=== PATIENT | male | born 1990 | race Caucasian/White ===

== ENCOUNTER 2017-05-20 09:15 | Emergency (ER) | payer MEDICAID, SELFPAY ==
[2017-05-20 09:16] VITALS: BP 145/87; PULSE 95; RESP 24; TEMP 36.7; O2SAT 98; BMI 35.2
--- NOTE | 2017-05-20 09:37 | US_ITS ---
STUDY: ABDOMINAL ULTRASOUND - RIGHT UPPER QUADRANT REASON FOR VISIT: Male, 26 years old. Several month history of right upper quadrant pain. TECHNIQUE: Ultrasound evaluation of the right upper quadrant was performed with real-time and static lew-scale imaging. TECHNICAL QUALITY: Adequate. COMPARISON: None. FINDINGS: Liver: The liver the liver is slightly enlarged and measures 18.4 cm. There is increased echogenicity consistent with fatty infiltration. The bile ducts are within normal limits. There is hepatic color flow. The direction of portal flow is hepatopetal. There is no demonstrated mass lesion. Gallbladder: Normal distended gallbladder. The gallbladder wall measures 2.8 mm. There is a positive sonographic Guallpa's sign. There is no pericholecystic fluid. There are no gallstones. A small amount of sludge is seen within the gallbladder lumen. Common Bile Duct (C.B.D.): The common bile duct measures 4.5 mm. Pancreas: Normal size of the head, body and tail of the pancreas. There is increased echogenicity of the pancreas. There is no demonstrated pancreatic mass or cyst. Right Kidney: Normal size of the right kidney. The right kidney measures 11.5 cm x 5.3 cm x 6.1 cm. Normal renal cortex. The right cortex measures 2.2 cm. There is no demonstrated renal mass or cyst. There is no right hydronephrosis. US/Gallbladder IMPRESSION: Mild hepatomegaly. Fatty infiltration of the liver. Sludge is seen within the gallbladder lumen. Electronically Signed: Krzysztof Santana MD at 10:57 EST Tel [phone], Service support ,
--- NOTE | 2017-05-20 09:39 | ED.DCSUM_ITS ---
- ER Visit Summary Date of Service: 05/20/17 Chief Complaint: Abdominal pain History of Present Illness: The patient is a 26 M presenting with right upper quadrant abdominal pain since last night. He has known gallbladder disease that was diagnosed in [place] but he did not follow up with a surgeon because he did not have health insurance at the time. This was last fall sometime. He states that he had several emergency department visits for right upper quadrant pain after heavy meals and had an ultrasound which also revealed possible evidence of cirrhosis. He has not yet established with a physician since he moved back to [place]. He denies any alcohol use. Denies any lower abdominal pain , chest pain, or shortness of breath. Pain is only in his right upper quadrant and does typically occur a few hours after a heavy meal. He is nauseated but has not vomited today. He has had mild diarrhea for 2 days. Physical Examination: His are within normal limits. He is not in distress. Neck is supple. Heart tones are regular and without murmur. Lungs are clear bilaterally. He does have tenderness in the right upper quadrant but no rebound or guarding. Overlying skin looks normal. The rest of his examination is unremarkable. Test Results: CBC and BMP basically normal. Liver panel normal except for an ALT of 71. Lipase normal. Right upper quadrant ultrasound revealed gallbladder sludge but no evidence of acute cholecystitis. He does have mild hepatomegaly. Fatty infiltration of the liver. He told me that he was diagnosed with cirrhosis in [place] but did not follow-up. His liver panel is normal here so I question whether this is accurate. Emergency Department Course and Treatment: He does have gallbladder sludge but no evidence of acute cholecystitis. No gallbladder wall thickening. White blood cell count is not elevated. No fever here. His pain improved markedly and he has no evidence of an acute surgical abdomen here. I discussed the case with Dr. Randi prado and she will see him at 1 PM today and her clinic to evaluate the right upper quadrant pain. Being discharged from the emergency department and going directly to his appointment. Treatment Plan: Dr. Randi prado today at 1 PM Disposition: Home stable condition Impression: Initial encounter right upper quadrant abdominal pain with gallbladder sludge, gallbladder disease, enlarged liver of uncertain significance This note was generated with [employer] dictation software. It may contain incorrect words, spelling, and punctuation that were not noted in review of the chart prior to signing ED Disposition - Plan for ED Patient: Chief Complaint: Abd Pain Prescriptions: Dicyclomine HCl [Bentyl] 20 mg PO TIDAC #20 capsule Referrals: Randi Valdez MD [STAFF PHYSICIAN] - (today at 1pm. Show up 15 minutes early)
[2017-05-20 09:48] LABS: Absolute Lymphocyte Count 1.98 X10^3/ul (0.83-4.51); Absolute Neutrophil Count 6.5 X10^3/uL (2.0-7.7); Basophil# 0.04 X10^3/uL; Basophil% 0.4 % (0-1); Eosinophil# 0.25 X10^3/uL; Eosinophils% 2.7 % (0-5); Hematocrit 49.1 % (40-54); Lymphocyte # 1.98 X10^3/ul (4.0); Lymphocyte % 21.2 % (19-41); Mean Corp Hgb Conc 34.6 g/gl (32-36); Mean Corpuscular Hgb 31.2 pg (27.0-32.0); Mean Corpuscular Volume 90.1 fL (80-94); Mean Platelet Vol. 9.3 fl (6.2-12.0); Monocyte# 0.58 X10^3/uL; Monocyte% 6.2 % (0-10); Neutrophil # 6.47 X10^3/uL (2.7-7.7); Neutrophil % 69.3 % (47-70); Platelet Count 378 K/mm3 (150-450); RBC Distribution Width SD 42.2 fl (35.1-43.9); Red Blood Count 5.45 M/mm3 (4.6-6.2); White Blood Count 9.3 K/mm3 (4.4-11.0)
[2017-05-20] MEDS: Ondansetron 4 MG/2 ML Vial IV (09:49)
[2017-05-20] MEDS: 0.9% Normal Saline 1,000 ML 1000 ML IV (09:50)
[2017-05-20 09:53] LABS: POSITIVE COUNT NO; POSITIVE DIFFERENTIAL NO; POSITIVE MORPHOLOGY NO
[2017-05-20 09:56] LABS: Red Blood Cells-Urine 0 SEEN /hpf (0-5); Squamous Epithelial Cells - UA 0 SEEN /hpf (0-5)
[2017-05-20 09:57] LABS: Color, Urine Yellow (Yellow); Glucose, Dipstick Normal (Normal); Ketone-Dipstick Negative (Negative); Leukocyte Esterase-Dipstick 25 /ul (Negative); Nitrite-Dipstick Negative (Negative); Occult Blood-Urine Negative /ul (Negative); Protein-Dipstick Negative (Negative); Urine Bilirubin Dipstick Negative (Negative); Urine Clarity Sl. Cloudy (Clear); Urine Urobilinogen Normal (Normal)
[2017-05-20 10:04] LABS: Mucous, Urine 1+ /hpf (<or=2+); White Blood Cells 0-5 SEEN /hpf (0-5)
[2017-05-20 10:05] LABS: Bacteria RARE /hpf (None Seen)
[2017-05-20 10:11] LABS: AST(SGOT) 28 U/L (15-37); Alanine Aminotransfer ALT/SGPT 71 U/L (16-61); Albumin, Serum 4.1 g/dL (3.2-5.0); Alkaline Phosphatase 80 U/L (45-117); Anion Gap 10 (5-15); BUN 11 mg/dL (7-18); BUN/Creat Ratio 10.6 RATIO (10-20); Bilirubin, Direct 0.15 mg/dL (0.00-0.30); Chloride 104 mmol/L (98-107); Creatinine, Serum 1.04 mg/dL (0.70-1.30); EST Glomerular Filtration Rate 91 mL/min (>60); Est Glom Filt Rate - Afr Amer 111 mL/min (>60); Estimated Creatinine Clearance 100.63 ml/min; Globulin 4.8 g/dL (2.2-4.2); Glucose 99 mg/dL (74-106); Lipase 287 U/L (73-393); Potassium 3.9 mmol/L (3.5-5.1); Protein, Total 8.9 g/dL (6.4-8.2); Sodium Level 139 mmol/L (136-145)
[2017-05-20 11:23] VITALS: BP 135/78; PULSE 92; RESP 14; O2SAT 99
[2017-05-20 11:58] VITALS: BP 128/74; PULSE 85; RESP 14; O2SAT 98
== END 2017-05-20 12:07 | disposition home or self-care (01) ==
PROVIDERS: Emergency Provider Emergency Medicine
DX: R10.11 Right upper quadrant pain (principal); K82.8 Other specified diseases of gallbladder; R16.0 Hepatomegaly, not elsewhere classified; K76.0 Fatty (change of) liver, not elsewhere classified; I10 Essential (primary) hypertension; R56.9 Unspecified convulsions; Z79.899 Other long term (current) drug therapy
CPT/HCPCS: 76705; 80048; 80076; 81001; 83690; 85025; 96361; 96374; 96375; 96376; 99284; J7030; A4216; J2405

== ENCOUNTER 2017-05-24 12:43 | Day surgery (SDC) | payer MEDICAID, SELFPAY ==
[2017-05-24] VITALS (9 sets, daily range): BP systolic 117–141; BP diastolic 50–82; PULSE 93–113; RESP 16–18; TEMP 36.3–37.2; O2SAT 91–98; BMI 34.8
--- NOTE | 2017-05-24 12:50 | EKG12_ITS ---
Test Reason : ST DEPRESSION Blood Pressure : / mmHG Vent. Rate : 103 BPM Atrial Rate : 103 BPM P-R Int : 136 ms QRS Dur : 088 ms QT Int : 372 ms P-R-T Axes : 022 060 -42 degrees QTc Int : 487 ms Sinus tachycardia Nonspecific ST and T wave abnormality Abnormal ECG Confirmed by MERISSA MCKEON, LYNDON ([id number]), graphics editor KVNG LEPE ([id number]) on 05/27/2017 1:48:17 PM Referred By: Randi Valdez Confirmed By:LYNODN CRAVEN MD
[2017-05-24 13:30] LABS: Partial Thromboplast Time 32.6 Seconds (24.1-36.2)
--- NOTE | 2017-05-24 14:30 | GALL_PTH ---
PATIENT: MELISSA VICKERS LOC: [facility] [place] U#:[id number] AGE/SX: 26/M ROOM: RE05/24/[address]: Dr. Randi Valdez MD : 1990 BED: DIS: 05/24/2017 SPEC #: [id number] RECD: 05/25/17 14:58 STATUS: RAVEN MELISSA #: [id number] SHARRI: 05/24/17 14:[address]: Randi Valdez DEPT: SURGICAL PATHOLOGY RECD BY: Tom Salgado ENTERED: 05/25/17 14:58 SP TYPE: ALPA AYERS DR: No Primary Care Phys Tissues: Gallbladder, NOS Procedures: Surgery Specimen Level III HEADER OPERATION: Laparoscopic cholecystectomy with IOC PRE-OP DIAGNOSIS: Right upper quadrant pain, abnormal gallbladder ultrasound TISSUE SUBMITTED: Gallbladder and contents MICROSCOPIC DIAGNOSIS Gallbladder and contents: Mild chronic cholecystitis. No stones are identified in the container or in the gallbladder. SJ:becki 05/26/17 MICROSCOPIC DESCRIPTION Slides are reviewed. GROSS DESCRIPTION Received is one container labeled with the patient's name and designated gallbladder. The specimen consists of a gallbladder measuring 7.5 x 3 x 1.8 cm. The external surface is smooth and glistening. Focally, it is granular, hemorrhagic and contains cautery artifact. The lumen of the gallbladder contains mucoid green bile. No calculi are present either in the lumen of the gallbladder or the specimen contains. The gallbladder mucosa is bile-stained. The gallbladder wall averages 0.2 cm in thickness. Procedure Writer sections of the gallbladder and the cystic duct are submitted in one cassette. / AM:becki 05/25/17 TC:3 CPT: 81096
--- NOTE | 2017-05-24 14:57 | PCM.IMDPSTOP ---
Immediate Post-Op Note Date of Procedure: 05/24/17 Primary Surgeon/Physician: Randi Valdez calendering supervisor: Rose Olmos Pre-Operative Diagnosis: right upper quadrant abdominal pain, abnormal gallbladder ultrasound Post-Operative Diagnosis: same Surgery/Procedure Performed:: laparoscopic cholecystectomy, possible cholangiograms Description of Surgical Findings:: could not do cholangiogram, very narrow duct, could cannulate but did not flush into duct Estimated Blood Loss: 20 ml Specimen's removed: gallbladder and contents Type of Anesthesia:: General ASA Class: ASA2 Mod Systematic Disease - Admit VTE Documentation VTE Present on Admission: Yes VTE Mechan Device Prophylaxis: SCD's
[2017-05-24] MEDS: Cefazolin 2 GM in 0.9% Normal Saline 100 ML IV (14:59)
--- NOTE | 2017-05-24 15:02 | PCM.DC.GB ---
Discharge Diet: No Restrictions Discharge Activity: Return to Normal Activity, May not drive while taking narcotic pain medications. Lifting Restrictions: no lifting greater than 20 pounds for 2 weeks Call your doctor if your incision/area has: Continuous Slow Oozing, Foul Smelling Discharge Call your doctor if you observe: Fever of 101 or Higher Additional Dressing/Incision Instructions:: Leave dressings in place. May get wet in shower. Do not soak - no tub baths/swimming Allergies/Adverse Reactions: Allergies No Known Allergies Allergy (Verified 05/23/17 10:30) Medications to take at Discharge Divalproex (ER) [Depakote ER] 250 mg PO QHS 05/20/17 Lisinopril/Hydrochlorothiazide [Zestoretic 10/12.5 Tablet] 1 tablet PO DAILY 05/20/17 Albuterol Inhaler [Ventolin Hfa (SP)] 1 - 2 puff INHALATION Q4H PRN PRN 05/23/17 Amoxicillin/Potassium Clav [Augmentin 875-125 Tablet] 1 each PO BID 05/23/17 Hydrocodone Bitart/Apap 5-325 [[place] 5MG-325MG] 1 - 2 tab PO Q4H PRN PRN 7 Days #20 tab 05/24/17 The following prescriptions were given: Hydrocodone Bitart/Apap 5-325 [[place] 5MG-325MG] 1 - 2 tab PO Q4H PRN PRN 7 Days #20 tab PRN Reason: Pain Primary Care Physician: Care Physician,No Primary [Primary Care Provider] - Please Follow Up With: Randi Valdez MD - call When: to be seen in 10-14 days, please call for date and time, thank you
--- NOTE | 2017-05-24 16:29 | PCM.OPRPT ---
Report of Operation Date of Procedure: 05/24/17 Pre-Operative Diagnosis: right upper quadrant abdominal pain, abnormal gallbladder ultrasound Post-Operative Diagnosis: same Surgery/Procedure Performed:: laparoscopic cholecystectomy Description of Surgical Findings:: could not do cholangiogram, very narrow duct, could cannulate but did not flush into duct cupola tapper helper: Rose Olmos Type of Anesthesia:: General Anesthesiologist: Nakul Zaman Specimen's removed: gallbladder and contents Drains: none Estimated Blood Loss (mL): 20 ml Fluids Replaced: 2000 ml RL Description of Procedure: After informed consent was given, the patient was brought to the Operating Room and placed in the supine position. Appropriate time out protocol was followed. The patient was then placed under general endotracheal anesthesia. The abdomen was then prepped with a sterile surgical skin preparation and sterile surgical drapes were placed. The infraumbilical skin fold was grasped with penetrating clamps and the skin and subcutaneous tissues were infiltrated with local anesthetic. A transverse skin incision was then made with a 15 blade scalpel. The anterior abdominal wall was elevated and a Veress needle was carefully inserted into the intraabdominal cavity. It was checked to be in the proper position with a normal saline drop test. A CO2 pneumoperitoneum was then created. Once this was achieved, then the Veress needle was removed and an 11mm trocar was placed in its stead. A 10mm laparoscope was then inserted into the trocar and careful attention was directed to the intraabdominal contents. There was no evidence of injury to any intraabdominal organs from insertion of the Veress needle or the trocar. Under direct visualization, a 5mm subxiphoid trocar and two lateral 5mm right subcostal trocars were placed. The skin and subcutaneous tissues at these sites were infiltrated with local anesthetic prior to placement of these trocars. Attention was then directed to the right upper quadrant of the abdomen. Graspers were placed in the lateral trocars to grasp the distal aspect of the gallbladder and direct it cephalad and to grasp the gallbladder at Hartmans pouch and direct it laterally. Dissection then began on the proximal gallbladder continuing down to the area of the triangle of Calot to bluntly dissect out the cystic duct. The neck of the gallbladder was identified and blunt dissection continued to dissect out a segment of the cystic duct. A clip was then placed on the neck of the gallbladder. A small ductotomy was then made. A Ranfac catheter was brought in through a separate skin incision and placed into the cystic duct. The cystic duct was noted to be narrow. An intraoperative cholangiogram was attempted but there was extravasation. Therefore, more proximally another ductotomy was made. However, this resulted in the same. Therefore the cholangiogram was aborted. The Ranfac catheter was then removed and two clips were placed proximal to the ductotomy and the cystic duct was then transected. The cystic artery was visualized and bluntly isolated and then two clips were placed proximally and one clip distally and then it was transected between the proximal and distal clips. The gallbladder was then from the liver bed using electrocautery and thus able to be brought out of the umbilical port via an Endobag. It was then forwarded to pathology for analysis. The liver bed was carefully examined. There was no evidence of bile leakage or bleeding. The cystic duct stump and cystic artery stump had their clips intact and there was no evidence of bile leakage or bleeding. Irrigation and aspiration was done of the area of dissection. The remainder of the abdomen was grossly normal. The CO2 was released and all trocars removed intact. The periumbilical fascia was approximated with a [id number] 0 vicryl suture. All skin incision were closed with 4-0 monocryl in a subdermal fashion. Cavilol and Steristrips were used to reinforce the skin closure. Sterile dressings were applied to all wounds. The patient was extubated and brought to the Recovery Room in stable condition. - Complications none noted - Admit VTE Documentation VTE Present on Admission: Yes VTE Mechan Device Prophylaxis: SCD's
--- NOTE | 2017-05-24 16:59 | EKG12_ITS ---
Test Reason : PRE OP Blood Pressure : / mmHG Vent. Rate : 088 BPM Atrial Rate : 088 BPM P-R Int : 136 ms QRS Dur : 078 ms QT Int : 348 ms P-R-T Axes : 020 051 004 degrees QTc Int : 421 ms Normal sinus rhythm Normal ECG No previous ECGs available Confirmed by MIO VALENTE ([id number]), technical editor KVNG LEPE ([id number]) on 05/26/2017 3:14:37 PM Referred By: Randi Valdez Confirmed By:MIO VALENTE
== END 2017-05-24 20:10 | disposition home or self-care (01) ==
LOC: SDC 12:43 → AC 12:45
PROVIDERS: Anesthesiology; Visit Provider Surgery
PROC: (CPT 47610; principal; 2017-05-24 14:10)
DX: K81.1 Chronic cholecystitis (principal); I10 Essential (primary) hypertension; G40.909 Epilepsy, unspecified, not intractable, without status epilepticus; Z79.899 Other long term (current) drug therapy
CPT/HCPCS: 47562; 84484; 85730; 88304; 93005; J7120; J2405

== ENCOUNTER 2017-05-26 20:05 | Emergency (ER) | payer MEDICAID, SELFPAY ==
[2017-05-26 20:06] VITALS: BP 150/79; PULSE 117; RESP 19; TEMP 37.6; O2SAT 97; BMI 36.8
--- NOTE | 2017-05-26 20:38 | CT_ITS ---
CT Abdomen And Pelvis Venogram W/ Contrast INDICATION: ABD PAIN,CELSA ON TUESDAY, FEVER, NAUSEA, INCREASED PAIN COMPARISON: None TECHNIQUE: Axial CT imaging of the abdomen and pelvis with coronal and sagittal reformatted images. Radiation dose optimization technique. 100 mL of Isovue-300 were given intravenously. FINDINGS: Visualized lung bases are clear. The heart size is normal. The liver appears low in density, suggestive of fatty infiltration. The gallbladder has been removed, there is mild fat stranding in the gallbladder fossa and a few small air collections are seen in the nondependent portions of the abdomen, compatible with recent surgery. There is no normal or drainable fluid collection. Bilateral nonobstructing renal calculi are seen. There is no evidence of hydronephrosis. Kidneys demonstrate symmetric cortical enhancement. Bowel loops are nondistended. Appendix is not visualized, may be surgically absent. Bowel loops are nondistended. There is no evidence of free air or free fluid. Urinary bladder is distended, correlate for urinary retention. There is marked fat stranding along the umbilicus with small air-fluid collections in the subcutaneous fat. CT/Abdomen/Pelvis W IV Cont ONLY IMPRESSION: Postsurgical changes compatible with recent cholecystectomy, including fat stranding in the gallbladder fossa and small amount of free air in the abdomen. Fat stranding and small air collections along the surgical tract near the umbilicus, early infection cannot be excluded, correlate for point tenderness. No evidence of abnormal or drainable collection. Fatty infiltration of the liver. Nonobstructing bilateral renal calculi. at 2224 Reported and signed by: Niki العلي MD Electronically Signed: Niki العلي MD at 21:22 EST Tel , Service support ,
--- NOTE | 2017-05-26 20:39 | RAD_ITS ---
XR Chest 2 Views INDICATION: had gallbladder removed on Tuesday now has a fever with cough COMPARISON: None FINDINGS: Heart size and pulmonary vascularity are within normal limits. The lungs are clear without evidence of airspace consolidation or pleural effusion. The osseous structures are grossly unremarkable. RAD/Chest PA and Lateral IMPRESSION: No radiographic evidence of acute intrathoracic disease. at 2203 Reported and signed by: Niki العلي MD Electronically Signed: Niki العلي MD at 21:01 EST Tel , Service support ,
[2017-05-26] MEDS: 0.9% Normal Saline 1,000 ML 1000 ML IV (20:50)
[2017-05-26] MEDS: Ondansetron 4 MG/2 ML Vial IV (20:50)
[2017-05-26 20:55] LABS: Bacteria 0 SEEN /hpf (None Seen); Mucous, Urine 0 SEEN /hpf (<or=2+); Red Blood Cells-Urine 0 SEEN /hpf (0-5)
[2017-05-26 21:23] LABS: ALB/GLOB Ratio 0.8 RATIO (0.9-2.4); AST(SGOT) 28 U/L (15-37); Alanine Aminotransfer ALT/SGPT 68 U/L (16-61); Albumin, Serum 3.5 g/dL (3.2-5.0); Alkaline Phosphatase 66 U/L (45-117); Anion Gap 7 (5-15); BUN 8 mg/dL (7-18); BUN/Creat Ratio 9.1 RATIO (10-20); Calcium,Total 8.7 mg/dL (8.5-10.1); Chloride 104 mmol/L (98-107); Creatinine, Serum 0.88 mg/dL (0.70-1.30); EST Glomerular Filtration Rate 111 mL/min (>60); Est Glom Filt Rate - Afr Amer 135 mL/min (>60); Estimated Creatinine Clearance 114.79 ml/min; Globulin 4.2 g/dL (2.2-4.2); Glucose 104 mg/dL (74-106); Lipase 205 U/L (73-393); Potassium 3.3 mmol/L (3.5-5.1); Protein, Total 7.7 g/dL (6.4-8.2); Sodium Level 141 mmol/L (136-145)
[2017-05-26 21:24] LABS: Color, Urine Straw (Yellow); Glucose, Dipstick Normal (Normal); Ketone-Dipstick Negative (Negative); Leukocyte Esterase-Dipstick Negative /ul (Negative); Nitrite-Dipstick Negative (Negative); Occult Blood-Urine 10 /ul (Negative); Protein-Dipstick Negative (Negative); Urine Bilirubin Dipstick Negative (Negative); Urine Clarity Clear (Clear); Urine Urobilinogen Normal (Normal)
[2017-05-26 21:34] LABS: Squamous Epithelial Cells - UA 0-5 SEEN /hpf (0-5); White Blood Cells 0-5 SEEN /hpf (0-5)
[2017-05-26 21:36] LABS: Absolute Neutrophil Count 6.6 X10^3/uL (2.0-7.7); Basophil# 0.04 X10^3/uL; Basophil% 0.4 % (0-1); Eosinophils% 2.1 % (0-5); Hematocrit 41.7 % (40-54); Lymphocyte % 15.8 % (19-41); Mean Corp Hgb Conc 33.6 g/gl (32-36); Mean Corpuscular Hgb 30.6 pg (27.0-32.0); Mean Platelet Vol. 9.9 fl (6.2-12.0); Monocyte# 1.13 X10^3/uL; Monocyte% 11.9 % (0-10); Neutrophil # 6.58 X10^3/uL (2.7-7.7); Neutrophil % 69.5 % (47-70); Platelet Count 320 K/mm3 (150-450); RBC Distribution Width CV 12.7 % (11.6-14.6); RBC Distribution Width SD 41.7 fl (35.1-43.9); Red Blood Count 4.58 M/mm3 (4.6-6.2); White Blood Count 9.5 K/mm3 (4.4-11.0)
[2017-05-26 21:40] LABS: POSITIVE COUNT NO; POSITIVE DIFFERENTIAL NO; POSITIVE MORPHOLOGY NO
[2017-05-26 22:03] VITALS: BP 154/85; PULSE 97; RESP 16; TEMP 37.2; O2SAT 98
--- NOTE | 2017-05-26 22:31 | NURSING ---
CALLED DR. BEACH
--- NOTE | 2017-05-26 22:42 | ED.DCSUM_ITS ---
- ER Visit Summary Date of Service: 05/26/17 Chief Complaint: Abdominal pain History of Present Illness: The patient is a 26 M who presents with abdominal pain. His 2 days postop from a laparoscopic cholecystectomy. He was feeling okay yesterday. However today he developed increased right-sided abdominal pain nausea and vomiting. He had 2 episodes of nonbloody nonbilious emesis. He had a temperature of 101.3. He also reports feeling short of breath with a cough. He also reports urinary urgency and frequency stating he has been urinating about every hour to hour and a half. No chest pain. No diarrhea. Physical Examination: Initial heart rate 117 temperature 99.6 Moist mucous membranes Heart regular rhythm tachycardia Patient had rhonchi but no rales or wheezing and was in no respiratory distress Abdomen soft nondistended he does have diffuse right-sided abdominal tenderness no guarding or rebound he does have some erythema and warmth surrounding his umbilical wound there is no drainage or fluctuance Test Results: CBC CMP lipase unremarkable. UA normal. Chest x-ray shows no acute disease. CT of the abdomen and pelvis shows postsurgical changes and some fat stranding and small air collections along the surgical tract near the umbilicus there is no focal abscess. Emergency Department Course and Treatment: She was treated here with IV fluids morphine and Zofran. On reevaluation symptoms are improved and heart rate is improved. I spoke to Dr. Valdez. Given the lack of focal abscess or leukocytosis I do believe he would be appropriate for outpatient oral antibiotics. The patient is comfortable with this plan. He does understand return for new or worsening symptoms and was instructed on specific signs and symptoms to monitor for. He does have scheduled follow-up on Tuesday and Dr. Valdez also said that she could see him tomorrow if needed. It was given first dose of Keflex and Bactrim here as well as prescriptions for the same and advised to call his surgeon's office tomorrow. PO challenge well tolerated. Treatment Plan: [] Disposition: Discharge Impression: Surgical wound infection This note was generated with [employer] dictation software. It may contain incorrect words, spelling, and punctuation that were not noted in review of the chart prior to signing ED Disposition - Plan for ED Patient: Chief Complaint: Fever Referrals: Care Physician,No Primary [Primary Care Provider] -
[2017-05-26] MEDS: Smz/Tmp Ds Tablet 1 TABLET PO (22:56)
[2017-05-26] MEDS: Cephalexin 250 MG Capsule 500 MG PO (22:56)
--- NOTE | 2017-05-26 23:10 | ED.DEP ---
ED Disposition - Plan for ED Patient: Chief Complaint: Fever Instructions: ED Wound Infec After Surgery Prescriptions: Ondansetron [Zofran Odt] 4 mg PO Q8H PRN PRN #10 tab PRN Reason: Nausea Cephalexin [Keflex] 500 mg PO Q6 #40 cap Smz/Tmp Ds [Bactrim Ds] 1 tab PO BID #20 tab Oxycodone HCl/Acetaminophen [Percocet 5/325] 1 tab PO Q6H PRN 3 Days #12 tab PRN Reason: Pain Referrals: Care Physician,No Primary [Primary Care Provider] - Randi Valdez MD [STAFF PHYSICIAN] -
[2017-05-26 23:29] VITALS: BP 151/86; PULSE 102; RESP 20; O2SAT 96
== END 2017-05-26 23:29 | disposition home or self-care (01) ==
PROVIDERS: Emergency Provider Emergency Medicine
DX: T81.4XXA Infection following a procedure, initial encounter (principal); R11.2 Nausea with vomiting, unspecified; R06.00 Dyspnea, unspecified; R39.15 Urgency of urination; R35.0 Frequency of micturition; R06.02 Shortness of breath; R05 Cough; Z79.899 Other long term (current) drug therapy; Z90.49 Acquired absence of other specified parts of digestive tract
CPT/HCPCS: 71046; 74177; 80053; 81001; 83690; 85025; 96361; 96374; 96375; 96376; 99283; J7030; Q9967; A4216; J2405

== ENCOUNTER 2017-06-15 11:08 | Emergency (ER) | payer MEDICAID, SELFPAY ==
[2017-06-15 11:10] VITALS: BP 154/100; PULSE 100; RESP 22; TEMP 36.3; O2SAT 97; BMI 36.4
--- NOTE | 2017-06-15 11:48 | NURSING ---
NO OLD EKGS
[2017-06-15 11:53] VITALS: PULSE 101; RESP 20
[2017-06-15] MEDS: Ipratropium/Albuterol Sulfate 3 ML AMPUL.NEB INHALATION (11:53)
--- NOTE | 2017-06-15 11:54 | EKG12_ITS ---
Test Reason : CP SOB Blood Pressure : / mmHG Vent. Rate : 085 BPM Atrial Rate : 085 BPM P-R Int : 134 ms QRS Dur : 086 ms QT Int : 362 ms P-R-T Axes : 031 045 -11 degrees QTc Int : 430 ms Normal sinus rhythm Nonspecific T wave abnormality Abnormal ECG Confirmed by MIO VALENTE ([id number]), art editor KVNG LEPE ([id number]) on 06/20/2017 2:06:19 PM Referred By: Alejandro James Confirmed By:MIO VALENTE
[2017-06-15 12:12] VITALS: BP 136/91; PULSE 94; RESP 19; O2SAT 93; O2SAT 95
--- NOTE | 2017-06-15 12:20 | RAD_ITS ---
STUDY: X-RAY CHEST REASON FOR EXAM: Male, 26 years old. Wheezing and cough. TECHNIQUE: PA and lateral views of the chest. COMPARISON: Comparison is made with prior study dated May 26, 2017. FINDINGS: EKG electrodes are seen. The lungs are clear and expanded. There is no demonstrated pleural abnormality. Normal size heart. Normal mediastinum and ton. Normal visualized pulmonary arteries. Normal visualized aortic arch and descending thoracic aorta. Normal visualized thoracic spine. Normal visualized ribs, clavicles, and shoulders. There is no demonstrated abnormality of the visualized soft tissue structures of the upper abdomen. RAD/Chest PA and Lateral IMPRESSION: Normal x-ray examination of the chest. Electronically Signed: Krzysztof Santana MD at 12:54 EDT Tel [phone], Service support ,
--- NOTE | 2017-06-15 12:23 | ED.VISSUMM ---
- ER Visit Summary Date of Service: 06/15/17 Chief Complaint: Seizures and cough History of Present Illness: The patient is a 26 M past medical history of seizure disorder. Which began 1 year ago. He is on Depakote for that. Recently his URI symptoms. He was diagnosed with influenza without being tested at an area urgent care. At that time he was treated with Tessalon Perles and cough syrup. Reportedly had a chest x-ray done 1-2 days ago at the [facility] was diagnosed with pneumonia treated with Zithromax and prednisone. Last night he had one seizure. He had 2 seizures today. He denies any diarrhea. He has had a cough and chills. Also nausea vomiting. No melena. No fever. Physical Examination: Well-appearing male. Vital signs are stable afebrile. Pulse ox 97% on room air no signs of hypoxia. HEENT exam atraumatic. Pupils round reactive light. Moist wheeze membranes. Neck nontender no lymphadenopathy. No meningismus. Lungs clear to auscultation bilaterally. Heart regular rate and rhythm no murmur. Chest wall nontender. Abdomen soft nontender nondistended no giving or masses normal bowel sounds no peritoneal signs. Pelvic girdle intact. Extremities moves all 4. Neurovascular intact. Nontender. No edema. No cords. Neurologically is awake and alert with no focal motor or sensory deficits. Back exam nontender. Neurologically is awake and alert with no focal motor deficits. Test Results: White count 8. H&H. BMP normal. Normal BUN and creatinine and gap. Depakote level is low at 23. His two-view chest x-ray done today in the ER is completely normal there is no signs of fluid or pneumonia. I will discuss that with both he and his significant other. Emergency Department Course and Treatment: He has acute on recurrent seizures with reportedly pneumonia diagnosed to urgent care. Treatment Plan: Repeat exam patient is doing well. He has had no further seizures in the emergency department he will be given a dose of Depakote here. And instructed to use Depakote at home as normal dose and timing. He will be placed on prednisone for the wheezing. And follow-up outpatient with his primary care physician Disposition: Discharged Impression: Acute recurrent seizures Viral URI with wheezing This note was generated with [employer] dictation software. It may contain incorrect words, spelling, and punctuation that were not noted in review of the chart prior to signing ED Disposition - Plan for ED Patient: Chief Complaint: Shortness of Breath Referrals: Alejandro James MD [Primary Care Provider] -
[2017-06-15 12:31] LABS: Absolute Lymphocyte Count 2.34 X10^3/ul (0.83-4.51); Absolute Neutrophil Count 4.9 X10^3/uL (2.0-7.7); Basophil# 0.05 X10^3/uL; Basophil% 0.6 % (0-1); Eosinophil# 0.32 X10^3/uL; Eosinophils% 3.9 % (0-5); Hematocrit 45.5 % (40-54); Hemoglobin 15.3 g/dl (13.0-16.5); Lymphocyte # 2.34 X10^3/ul (4.0); Lymphocyte % 28.3 % (19-41); Mean Corp Hgb Conc 33.6 g/gl (32-36); Mean Corpuscular Hgb 30.8 pg (27.0-32.0); Mean Corpuscular Volume 91.5 fL (80-94); Mean Platelet Vol. 9.6 fl (6.2-12.0); Monocyte# 0.66 X10^3/uL; Neutrophil # 4.86 X10^3/uL (2.7-7.7); Neutrophil % 58.7 % (47-70); Platelet Count 352 K/mm3 (150-450); RBC Distribution Width CV 13.9 % (11.6-14.6); RBC Distribution Width SD 45.5 fl (35.1-43.9); Red Blood Count 4.97 M/mm3 (4.6-6.2); White Blood Count 8.3 K/mm3 (4.4-11.0)
[2017-06-15 12:32] LABS: POSITIVE COUNT NO; POSITIVE DIFFERENTIAL NO; POSITIVE MORPHOLOGY NO
[2017-06-15 12:44] LABS: Anion Gap 6 (5-15); BUN 17 mg/dL (7-18); BUN/Creat Ratio 19.4 RATIO (10-20); Calcium,Total 8.8 mg/dL (8.5-10.1); Chloride 105 mmol/L (98-107); Creatinine, Serum 0.88 mg/dL (0.70-1.30); EST Glomerular Filtration Rate 111 mL/min (>60); Est Glom Filt Rate - Afr Amer 134 mL/min (>60); Estimated Creatinine Clearance 114.79 ml/min; Glucose 92 mg/dL (74-106); Sodium Level 141 mmol/L (136-145)
[2017-06-15 12:50] LABS: Valproic Acid (Depakene) Level 23 ug/mL (50-100)
--- NOTE | 2017-06-15 13:00 | ED.DEP ---
ED Disposition - Plan for ED Patient: Disposition: Home or Assisted Living Chief Complaint: Shortness of Breath Instructions: ED Bronchitis Asthmatic, ED Seizure Recurrent, ED URI Viral Prescriptions: Prednisone [Deltasone] 40 mg PO DAILY 7 Days tab Referrals: Alejandro James MD [Primary Care Provider] - 3-5 Days Additional Instructions: Take your regular scheduled dose of Depakote tonight. Your level was low today at 23. Your chest x-ray is normal shows no signs of pneumonia. The prednisone will help you with the wheezing. Follow-up with primary care physician or return to ER feeling worse.
[2017-06-15] MEDS: Divalproex Sodium 250 MG Tablet 500 MG PO (13:18)
[2017-06-15 13:19] VITALS: BP 113/68; PULSE 88; RESP 20; O2SAT 94
== END 2017-06-15 13:20 | disposition home or self-care (01) ==
PROVIDERS: Emergency Provider Emergency Medicine; PCP Family Medicine
DX: G40.909 Epilepsy, unspecified, not intractable, without status epilepticus (principal); J06.9 Acute upper respiratory infection, unspecified; R06.2 Wheezing; R11.2 Nausea with vomiting, unspecified; I10 Essential (primary) hypertension; Z79.899 Other long term (current) drug therapy
CPT/HCPCS: 71046; 80048; 80164; 85025; 93005; 94640; A4216

== ENCOUNTER 2017-06-15 20:40 | Emergency (ER) | payer MEDICAID, SELFPAY ==
[2017-06-15 20:42] VITALS: BP 163/103; PULSE 119; RESP 20; TEMP 36.8; O2SAT 95; BMI 36.7
[2017-06-15 21:16] VITALS: O2SAT 95
--- NOTE | 2017-06-15 21:34 | ED.RN ---
PATIENT STATES HE HAD A SEIZURE X'S 1 LASTING A FEW SECONDS. MD MADE AWARE. PATIENT VITAL SIGNS STABLE, WILL CONTINUE TO MONITOR CLOSELY.
--- NOTE | 2017-06-15 22:08 | EKG12_ITS ---
Test Reason : CHEST PAIN Blood Pressure : / mmHG Vent. Rate : 104 BPM Atrial Rate : 104 BPM P-R Int : 132 ms QRS Dur : 086 ms QT Int : 326 ms P-R-T Axes : 053 056 003 degrees QTc Int : 428 ms Sinus tachycardia Nonspecific T wave abnormality Abnormal ECG Confirmed by MIO VALENTE ([id number]), makeup editor KVNG LEPE ([id number] on 06/20/2017 1:53:35 PM Referred By: JAYSHREE Confirmed By:MIO VALENTE
[2017-06-15] MEDS: 0.9% Normal Saline 1,000 ML 1000 ML IV ×2 (22:30→23:16)
[2017-06-15 22:32] VITALS: BP 158/95; PULSE 102; RESP 14; O2SAT 98
[2017-06-15 22:34] LABS: Absolute Lymphocyte Count 0.99 X10^3/ul (0.83-4.51); Absolute Neutrophil Count 7.2 X10^3/uL (2.0-7.7); Basophil# 0.01 X10^3/uL; Basophil% 0.1 % (0-1); Eosinophil# 0.01 X10^3/uL; Eosinophils% 0.1 % (0-5); Hematocrit 43.4 % (40-54); Hemoglobin 14.4 g/dl (13.0-16.5); Lymphocyte # 0.99 X10^3/ul (4.0); Lymphocyte % 11.1 % (19-41); Mean Corp Hgb Conc 33.2 g/gl (32-36); Mean Corpuscular Hgb 30.8 pg (27.0-32.0); Mean Corpuscular Volume 92.7 fL (80-94); Mean Platelet Vol. 9.6 fl (6.2-12.0); Monocyte% 7.8 % (0-10); Neutrophil # 7.19 X10^3/uL (2.7-7.7); Neutrophil % 80.7 % (47-70); Platelet Count 363 K/mm3 (150-450); RBC Distribution Width CV 13.8 % (11.6-14.6); RBC Distribution Width SD 46.1 fl (35.1-43.9); Red Blood Count 4.68 M/mm3 (4.6-6.2); White Blood Count 8.9 K/mm3 (4.4-11.0)
[2017-06-15 22:37] LABS: POSITIVE COUNT NO; POSITIVE DIFFERENTIAL NO; POSITIVE MORPHOLOGY NO
[2017-06-15 22:43] LABS: D-Dimer Quantitative (DVT/PE) < 0.27 FEU/ug/m (0.27-0.49)
[2017-06-15 22:51] LABS: Anion Gap 8 (5-15); BUN 19 mg/dL (7-18); BUN/Creat Ratio 21.5 RATIO (10-20); Calcium,Total 8.5 mg/dL (8.5-10.1); Chloride 107 mmol/L (98-107); Creatinine, Serum 0.88 mg/dL (0.70-1.30); EST Glomerular Filtration Rate 110 mL/min (>60); Est Glom Filt Rate - Afr Amer 133 mL/min (>60); Estimated Creatinine Clearance 114.79 ml/min; Glucose 170 mg/dL (74-106); Potassium 3.9 mmol/L (3.5-5.1); Sodium Level 141 mmol/L (136-145)
--- NOTE | 2017-06-15 23:20 | ED.VISSUMM ---
- ER Visit Summary Date of Service: 06/15/17 Chief Complaint: Chest tightness History of Present Illness: The patient is a 26 M presenting for evaluation secondary chest tightness. Patient states that this started this morning while at rest. He describes it as a continuous tightness. It was associated with a fever as high as 103 yesterday. Patient was seen this morning and had a chest x-ray blood work EKG and was discharged with prednisone and Depakote for his seizure disorder. Patient states that he simply feels that he is not getting any better and may actually have gotten a little bit worse associated with mild headache. Denies any history of PE, although he did have gallbladder surgery 3 weeks ago denies any unilateral leg swelling. Review of systems otherwise negative. Physical Examination: Vital signs are within normal limits, patient is afebrile. General: Patient is well-nourished well-developed and in no acute distress. Head: Normocephalic, atraumatic Eyes: Pupils equal round and reactive bilaterally, extra occular motion intact bialterally ENT: Moist mucous membranes Neck: Supple, no lymphadenopathy, no JVD, no meningismus CVS: Heart tachycardic and rhythm, no murmurs, rubs or gallops, radial pulses 2+ bilaterally Resp: Respirations nondistressed, lung sounds show evidence of bilateral wheezes without retractions or respiratory distress Abdomen: Soft, nontender, nondistended, no palpable masses, normal bowel sounds Back: Nontender Extremities: Nontender, atraumatic, active full range of motion, no peripheral edema Skin: warm, no rashes, no petechia Neuro: Alert and oriented x 4, CN 2-12 intact, no lateralizing neurological defecits Psyc: Normal affect Test Results: EKG demonstrates nonspecific T-wave changes in the sinus rate of 104. This is consistent with patient's prior EKG. Emergency Department Course and Treatment: Patient presented secondary to continued chest pain. I reviewed his records, he did have a negative workup but a d-dimer was not performed this was added on. This was found to be negative as was a repeat cardiac enzyme. Repeat evaluation shows the patient to have continued wheezing and believe that is the cause of his chest tightness. Patient was recommended to continue his course of prednisone and follow-up with his primary care physician. Disposition: Discharge Impression: 1. Asthma exacerbation This note was generated with [employer] software. It may contain incorrect words, spelling, and punctuation that were not noted in review of the chart prior to signing ED Disposition - Plan for ED Patient: Disposition: Home or Assisted Living Chief Complaint: Shortness of Breath Diagnosis: Asthma exacerbation Instructions: ED Reactive Airway Disease Referrals: Alejandro James MD [Primary Care Provider] - 3-5 Days
--- NOTE | 2017-06-15 23:24 | ED.DCSUM_ITS ---
- ER Visit Summary Date of Service: 06/15/17 Chief Complaint: Chest tightness History of Present Illness: The patient is a 26 M presenting for evaluation secondary chest tightness. Patient states that this started this morning while at rest. He describes it as a continuous tightness. It was associated with a fever as high as 103 yesterday. Patient was seen this morning and had a chest x -ray blood work EKG and was discharged with prednisone and Depakote for his seizure disorder. Patient states that he simply feels that he is not getting any better and may actually have gotten a little bit worse associated with mild headache. Denies any history of PE, although he did have gallbladder surgery 3 weeks ago denies any unilateral leg swelling. Review of systems otherwise negative. Physical Examination: Vital signs are within normal limits, patient is afebrile. General: Patient is well-nourished well-developed and in no acute distress. Head: Normocephalic, atraumatic Eyes: Pupils equal round and reactive bilaterally, extra occular motion intact bialterally ENT: Moist mucous membranes Neck: Supple, no lymphadenopathy, no JVD, no meningismus CVS: Heart tachycardic and rhythm, no murmurs, rubs or gallops, radial pulses 2 + bilaterally Resp: Respirations nondistressed, lung sounds show evidence of bilateral wheezes without retractions or respiratory distress Abdomen: Soft, nontender, nondistended, no palpable masses, normal bowel sounds Back: Nontender Extremities: Nontender, atraumatic, active full range of motion, no peripheral edema Skin: warm, no rashes, no petechia Neuro: Alert and oriented x 4, CN 2-12 intact, no lateralizing neurological defecits Psyc: Normal affect Test Results: EKG demonstrates nonspecific T-wave changes in the sinus rate of 104. This is consistent with patient's prior EKG. Emergency Department Course and Treatment: Patient presented secondary to continued chest pain. I reviewed his records, he did have a negative workup but a d-dimer was not performed this was added on. This was found to be negative as was a repeat cardiac enzyme. Repeat evaluation shows the patient to have continued wheezing and believe that is the cause of his chest tightness. Patient was recommended to continue his course of prednisone and follow-up with his primary care physician. Disposition: Discharge Impression: 1. Asthma exacerbation This note was generated with [employer] software. It may contain incorrect words, spelling, and punctuation that were not noted in review of the chart prior to signing ED Disposition - Plan for ED Patient: Disposition: Home or Assisted Living Chief Complaint: Shortness of Breath Diagnosis: Asthma exacerbation Instructions: ED Reactive Airway Disease Referrals: Alejandro James MD [Primary Care Provider] - 3-5 Days
[2017-06-16 00:57] VITALS: PULSE 82; RESP 14; O2SAT 98; O2SAT 99
== END 2017-06-16 00:58 | disposition home or self-care (01) ==
PROVIDERS: Emergency Provider Emergency Medicine; Family Provider Family Medicine; PCP Family Medicine
DX: J45.901 Unspecified asthma with (acute) exacerbation (principal); G40.909 Epilepsy, unspecified, not intractable, without status epilepticus; J06.9 Acute upper respiratory infection, unspecified; R06.2 Wheezing; R11.2 Nausea with vomiting, unspecified; I10 Essential (primary) hypertension; Z79.899 Other long term (current) drug therapy
CPT/HCPCS: 71046; 80048; 80164; 84484; 85025; 85379; 93005; 94640; 96360; 96361; 99284; J7030; A4216